=== PATIENT | male | born 1980 | race Caucasian/White ===

== ENCOUNTER 2019-03-24 19:27 | Emergency (ER) | payer SELFPAY ==
[~2019-03-24] VITALS: Ht 180.3 cm; Wt 80.0 kg
[~2019-03-24 19:27] MED LIST: AMOX1TAB10 PO; HYDR-4011 PO; IBUP-1542 PO
[2019-03-24 19:48] VITALS: Ht 180.3 cm; Wt 80.0 kg
[2019-03-24] MEDS ORDERED: IBUPROFEN 600 MG TAB PO ONE (20:30)
[2019-03-24] MEDS ORDERED: HYDROCODONE/APAP (5/325) TAB PO ONE (20:30)
[2019-03-24] MEDS ORDERED: AMOXICILLIN/CLAV 875 MG TAB PO ONE (20:30)
[2019-03-24] MEDS ORDERED: DIPHTH/TET/ACEL PERTUSS (ADULT) 0.5 ML VIAL IM* ONE (20:30)
== END 2019-03-24 21:17 | disposition home or self-care (01) ==
LOC: FTE 19:27
DX: S61.350A Open bite of right index finger with damage to nail, initial encounter (principal); W50.3XXA Accidental bite by another person, initial encounter; Y04.0XXA Assault by unarmed brawl or fight, initial encounter; Z23 Encounter for immunization
CPT/HCPCS: 73140; 90471; 90715